=== PATIENT | male | born 1980 | race Hispanic/Latino ===

== ENCOUNTER 2018-06-12 00:09 | Emergency (ER) | payer SELFPAY ==
[2018-06-12 00:14] VITALS: TEMP 98
--- NOTE | 2018-06-12 00:54 | ED PDOC ---
HPI: Psych/Substance Abuse Time Seen by Provider: 06/12/18 00:19 Chief Complaint (Nursing): Alcohol Ingestion Additional Complaint(s): 37 y/o male brought to the ED by EMS for public intoxication. Patient offers no complaints at this time. Patient states he is visiting from [place] and fell asleep outside waiting for his friends to arrive. Patient was made to come to the ED as per PD and ems. Patient is now requesting to be allowed to go home. PMD: None Provided Past Medical History Reviewed: Historical Data, Nursing Documentation, Vital Signs Vital Signs: Last Vital Signs Temp 98 F 06/12/18 00:11 Pulse 98 H 06/12/18 00:36 Resp 17 06/12/18 00:36 BP 146/94 H 06/12/18 00:36 Pulse Ox 98 06/12/18 00:36 - Medical History PMH: HTN - Surgical History Surgical History: No Surg Hx - Family History Family History: States: No Known Family Hx - Social History Current smoker - smoking cessation education provided: No Alcohol: Social Drugs: Denies - Allergies Allergies/Adverse Reactions: Allergies Allergy/AdvReac Type Severity Reaction Status Date / Time No Known Allergies Allergy Verified 06/12/18 00:11 Review of Systems ROS Statement: Except As Marked, All Systems Reviewed And Found Negative Psych: Positive for: Other (Alcohol Intoxication) Physical Exam - Physical Exam Appears: Positive for: Non-toxic, No Acute Distress Head Exam: Positive for: ATRAUMATIC, NORMOCEPHALIC Skin: Positive for: Normal Color, Warm, Dry Eye Exam: Positive for: Normal appearance, EOMI, PERRL Neck: Positive for: Normal, Painless ROM Cardiovascular/Chest: Positive for: Regular Rate, Rhythm Respiratory: Positive for: Normal Breath Sounds. Negative for: Respiratory Distress Gastrointestinal/Abdominal: Positive for: Normal Exam, Soft. Negative for: Tenderness Extremity: Positive for: Normal ROM. Negative for: Deformity Neurologic/Psych: Positive for: Alert, Oriented (x3), Gait (steady), Other ( Speech is clear). Negative for: Motor/Sensory Deficits - ECG O2 Sat by Pulse Oximetry: 98 (RA) Pulse Ox Interpretation: Normal Medical Decision Making Medical Decision Making: Time: 44 Impression: 37 y/o male with alcohol abuse Plan: -- Patient is stable for discharge home with a diagnosis of alcohol use. Scribe Attestation: Documented by Alicia Barrientos acting as a scribe for Tito Givens MD. Provider Scribe Attestation: All medical record entries made by the Scribe were at my direction and personally dictated by me. I have reviewed the chart and agree that the record accurately reflects my personal performance of the history, physical exam, medical decision making, and the department course for this patient. I have also personally directed, reviewed, and agree with the discharge instructions and disposition. Disposition - Clinical Impression Clinical Impression: Alcohol use - Patient ED Disposition Is Patient to be Admitted: No - Disposition Disposition: Routine/Home Disposition Time: 00:45 Condition: STABLE Instructions: Alcohol Use - When Is Drinking a Problem? Forms: [facility] (Czech)
[2018-06-12 00:59] VITALS: BP 146/94; PULSE 98; RESP 17; O2SAT 98
== END 2018-06-12 00:38 | disposition home or self-care (01) ==
LOC: H.ER 00:09
DX: F10.10 Alcohol abuse, uncomplicated (principal); I10 Essential (primary) hypertension